=== PATIENT | male | born 1950 | race Caucasian/White ===

== ENCOUNTER 2016-03-18 07:08 | Outpatient (CLI) ==
[2013-07-15 20:58] VITALS: BMI 28.0
[2016-03-18 07:40] LABS: BASOPHILS % (AUTO) 0.7 % (0.0-3.0); EOSINOPHILS # (AUTO) 0.5 K/ul (0.0-0.7); EOSINOPHILS % (AUTO) 8.7 % (0.0-7.0); HEMATOCRIT 42.7 % (42.0-52.0); HEMOGLOBIN 14.3 g/dl (14.0-18.0); IMMATURE GRANULOCYTE % (AUTO) 0.4 % (0.0-5.0); LYMPHOCYTES # (AUTO) 1.6 K/uL (0.60-3.4); LYMPHOCYTES % (AUTO) 28.7 (10.0-50.0); MEAN CORPUSCULAR HEMOGLOBIN 30.8 pg (27.0-31.0); MEAN CORPUSCULAR HGB CONC 33.5 (31.8-35.4); MEAN CORPUSCULAR VOLUME 91.8 fl (80.0-94.0); MONOCYTES # (AUTO) 0.4 K/uL (0.4-2.0); MONOCYTES % (AUTO) 7.3 (0-10); NEUTROPHILS % (AUTO) 54.2; PLATELET COUNT 223 10^3/uL (140-440); RED BLOOD COUNT 4.65 10^6/ul (4.70-6.10); WHITE BLOOD COUNT 5.51 K/ul (4.2-10.2)
[2016-03-18 07:42] LABS: BILIRUBIN,URINE Negative (NEGATIVE); KETONES,URINE Negative (NEGATIVE); LEUKOCYTE ESTERASE ,URINE Negative (NEGATIVE); NITRITE,URINE Negative (NEGATIVE); PROTEIN,URINE Negative (NEGATIVE); URINE, BLOOD Negative (NEGATIVE)
[2016-03-18 07:49] LABS: ADD URINE MICROSCOPIC NO
[2016-03-18 07:55] LABS: ALBUMIN/GLOBULIN RATIO 1.25; ANION GAP 14.7; BILIRUBIN,TOTAL 0.41 mg/dL (0.00-1.20); BUN/CREATININE RATIO 12.5; CALCIUM 9.5 mg/dL (8.2-10.2); CHOL/HDL RATIO 4.2 (4.5-6.4); CREATININE 0.96 mg/dL (0.60-1.10); MAGNESIUM 2.4 mg/dL (1.7-2.2); POTASSIUM 4.7 mmol/L (3.5-5.1); TOTAL PROTEIN 7.2 g/dL (5.8-8.1)
== END 2016-03-18 07:09 | disposition home or self-care (01) ==
LOC: LAB 07:08
PROVIDERS: ATTEND General Practice
DX: E11.9 Type 2 diabetes mellitus without complications (principal); E78.5 Hyperlipidemia, unspecified; I10 Essential (primary) hypertension; R19.7 Diarrhea, unspecified; R25.2 Cramp and spasm; Z79.899 Other long term (current) drug therapy
CPT/HCPCS: 36415; 80053; 80061; 81001; 83036; 83735; 85025

== ENCOUNTER 2016-03-26 11:12 | Outpatient (CLI) ==
[2013-07-15 20:58] VITALS: BMI 28.0
--- NOTE | 2016-03-26 12:43 | DI ---
EXAM: Chest two views HISTORY: Cough COMPARISON: 12/07/2015 TECHNIQUE: Two views of the chest were performed FINDINGS: The lungs are clear. There is no pleural effusion or pneumothorax. The heart is normal in size. The mediastinal contour is normal, noting atherosclerosis. There are no acute abnormaliti es of the bones. IMPRESSION: No acute cardiopulmonary process.
--- NOTE | 2016-03-26 12:46 | DI ---
EXAM:Three-view left ankle COMPARISON: None HISTORY: Trauma and pain FINDINGS: There is no acute fracture or dislocation. Alignment is anatomic. Joint spaces are well preserved. There is a modest degree of degenerative change including calcaneal plantar Achilles spu rs. The ankle mortise is preserved. Soft tissues are unremarkable. No unexpected radio-opaque forei gn bodies. IMPRESSION: 1. No acute osseous abnormality. 2. Modest degenerative change.
== END 2016-03-26 11:13 | disposition home or self-care (01) ==
LOC: RAD 11:12
PROVIDERS: ATTEND General Practice
DX: R05 Cough (principal); M25.572 Pain in left ankle and joints of left foot

== ENCOUNTER → 2016-04-29 | Outpatient (POV) ==
[2013-07-15 20:58] VITALS: BMI 28.0
== END ==
LOC: OUTPT 00:01
PROVIDERS: ATTEND Otolaryngology
DX: H91.90 Unspecified hearing loss, unspecified ear (principal); H93.19 Tinnitus, unspecified ear
CPT/HCPCS: 92557; 92567

== ENCOUNTER 2016-09-30 07:53 | Outpatient (CLI) ==
[2013-07-15 20:58] VITALS: BMI 28.0
[2016-09-30 08:34] LABS: BASOPHILS % (AUTO) 0.7 % (0.0-3.0); EOSINOPHILS # (AUTO) 0.6 K/ul (0.0-0.7); EOSINOPHILS % (AUTO) 9.8 % (0.0-7.0); HEMATOCRIT 39.8 % (42.0-52.0); IMMATURE GRANULOCYTE % (AUTO) 0.5 % (0.0-5.0); LYMPHOCYTES # (AUTO) 1.6 K/uL (0.60-3.4); LYMPHOCYTES % (AUTO) 28.2 (10.0-50.0); MEAN CORPUSCULAR HEMOGLOBIN 31.9 pg (27.0-31.0); MEAN CORPUSCULAR HGB CONC 35.2 (31.8-35.4); MEAN CORPUSCULAR VOLUME 90.7 fl (80.0-94.0); MONOCYTES # (AUTO) 0.4 K/uL (0.4-2.0); MONOCYTES % (AUTO) 7.6 (0-10); NEUTROPHILS % (AUTO) 53.2; PLATELET COUNT 206 10^3/uL (140-440); RED BLOOD COUNT 4.39 10^6/ul (4.70-6.10); WHITE BLOOD COUNT 5.64 K/ul (4.2-10.2)
[2016-09-30 08:37] LABS: BILIRUBIN,URINE Negative (NEGATIVE); KETONES,URINE Negative (NEGATIVE); LEUKOCYTE ESTERASE ,URINE Negative (NEGATIVE); NITRITE,URINE Negative (NEGATIVE); PROTEIN,URINE Negative (NEGATIVE); URINE, BLOOD Negative (NEGATIVE)
[2016-09-30 08:38] LABS: ADD URINE MICROSCOPIC NO
[2016-09-30 08:51] LABS: ALBUMIN 3.9 g/dL (3.4-5.0); ALBUMIN/GLOBULIN RATIO 1.26; ANION GAP 15.6; BILIRUBIN,TOTAL 0.45 mg/dL (0.00-1.20); BUN/CREATININE RATIO 13.68; CALCIUM 10.1 mg/dL (8.2-10.2); CREATININE 0.95 mg/dL (0.60-1.10); POTASSIUM 4.6 mmol/L (3.5-5.1)
== END 2016-09-30 07:54 | disposition home or self-care (01) ==
LOC: LAB 07:53
PROVIDERS: ATTEND General Practice
DX: Z79.899 Other long term (current) drug therapy (principal)
CPT/HCPCS: 36415; 80053; 80061; 81001; 83036; 85025

== ENCOUNTER 2017-02-01 06:52 | Outpatient (CLI) ==
[2013-07-15 20:58] VITALS: BMI 28.0
[2017-02-01 07:09] LABS: HEMATOCRIT 40.5 % (42.0-52.0); HEMOGLOBIN 13.7 g/dl (14.0-18.0); MEAN CORPUSCULAR HEMOGLOBIN 31.2 pg (27.0-31.0); MEAN CORPUSCULAR HGB CONC 33.8 (31.8-35.4); MEAN CORPUSCULAR VOLUME 92.3 fl (80.0-94.0); RED BLOOD COUNT 4.39 10^6/ul (4.70-6.10); WHITE BLOOD COUNT 5.36 K/ul (4.2-10.2)
[2017-02-01 07:29] LABS: BILIRUBIN,URINE Negative (NEGATIVE); KETONES,URINE Negative (NEGATIVE); LEUKOCYTE ESTERASE ,URINE Negative (NEGATIVE); NITRITE,URINE Negative (NEGATIVE); PROTEIN,URINE Negative (NEGATIVE); URINE, BLOOD Negative (NEGATIVE)
[2017-02-01 07:32] LABS: ADD URINE MICROSCOPIC NO; ALBUMIN 3.8 g/dL (3.4-5.0); ALBUMIN/GLOBULIN RATIO 1.15; ANION GAP 13.3; BILIRUBIN,TOTAL 0.34 mg/dL (0.00-1.20); BUN/CREATININE RATIO 15.55; CALCIUM 9.2 mg/dL (8.2-10.2); CHOL/HDL RATIO 4.1 (4.5-6.4); CREATININE 0.9 mg/dL (0.60-1.10); POTASSIUM 4.3 mmol/L (3.5-5.1); TOTAL PROTEIN 7.1 g/dL (5.8-8.1)
== END 2017-02-01 06:53 | disposition home or self-care (01) ==
LOC: LAB 06:52
PROVIDERS: ATTEND General Practice
DX: E11.9 Type 2 diabetes mellitus without complications (principal); I10 Essential (primary) hypertension; E78.5 Hyperlipidemia, unspecified; Z79.899 Other long term (current) drug therapy
CPT/HCPCS: 36415; 80053; 80061; 81001; 83036; 85027

== ENCOUNTER 2017-06-01 06:56 | Outpatient (CLI) | payer OTHER ==
[2013-07-15 20:58] VITALS: BMI 28.0
== END 2017-06-01 06:57 | disposition home or self-care (01) ==
LOC: LAB 06:56
PROVIDERS: ATTEND General Practice
DX: I10 Essential (primary) hypertension (principal); E78.1 Pure hyperglyceridemia; E11.9 Type 2 diabetes mellitus without complications; Z12.5 Encounter for screening for malignant neoplasm of prostate
CPT/HCPCS: 36415; 80053; 80061; 81001; 83036; 85025

== ENCOUNTER 2017-09-22 07:42 | Outpatient (CLI) ==
[2013-07-15 20:58] VITALS: BMI 28.0
== END 2017-09-22 07:43 | disposition home or self-care (01) ==
LOC: LAB 07:42
PROVIDERS: ATTEND General Practice
DX: R23.2 Flushing (principal); R25.2 Cramp and spasm; E11.9 Type 2 diabetes mellitus without complications; E78.5 Hyperlipidemia, unspecified; I10 Essential (primary) hypertension
CPT/HCPCS: 36415; 80053; 80061; 81001; 83036; 84402; 84403; 85025

== ENCOUNTER 2017-09-24 10:57 | Outpatient (CLI) | payer OTHER ==
[2013-07-15 20:58] VITALS: BMI 28.0
== END 2017-09-24 10:58 | disposition home or self-care (01) ==
LOC: LAB 10:57
PROVIDERS: ATTEND General Practice
DX: R23.2 Flushing (principal); R25.2 Cramp and spasm
CPT/HCPCS: 83497

== ENCOUNTER 2018-01-18 06:15 | Outpatient (CLI) | payer OTHER ==
[2013-07-15 20:58] VITALS: BMI 28.0
== END 2018-01-18 06:16 | disposition home or self-care (01) ==
LOC: LAB 06:15
PROVIDERS: ATTEND General Practice
DX: E78.5 Hyperlipidemia, unspecified (principal); E11.9 Type 2 diabetes mellitus without complications; I10 Essential (primary) hypertension; Z79.899 Other long term (current) drug therapy
CPT/HCPCS: 36415; 80053; 80061; 81001; 83036; 85025

== ENCOUNTER 2018-04-20 16:33 | Outpatient (CLI) ==
[2013-07-15 20:58] VITALS: BMI 28.0
--- NOTE | 2018-04-20 17:02 | DI ---
EXAM: Two views of the left shoulder. History: Left shoulder pain. Findings: No acute fracture or dislocation. Moderate narrowing of the left AC joint with osteophyte s. Mild narrowing of the left glenohumeral joint. No abnormal calcifications or radiopaque foreign bodies. Impression: 1. No acute osseous abnormality. 2. Moderate arthritis of the left AC joint and mild arthritis of the left glenohumeral joint
--- NOTE | 2018-04-20 17:02 | DI ---
EXAM: Four views of the right knee. History: Right knee pain. Findings: No acute fracture or dislocation. Moderate to severe narrowing of the medial compartment. Mild to moderate narrowing of the lateral and patellofemoral compartments. There is marginal scler osis and osteophyte formation. Patellar enthesiopathy. Impression: 1. No acute osseous abnormality. 2. Tricompartmental osteoarthritis
--- NOTE | 2018-04-20 17:02 | DI ---
EXAM: Two views of the left clavicle. History: Left shoulder pain. Findings: No acute fracture or dislocation. Moderate narrowing of the left AC joint with osteophyte s. Mild narrowing of the left glenohumeral joint. No abnormal calcifications or radiopaque foreign bodies. Impression: 1. No acute osseous abnormality. 2. Moderate osteoarthritis of the left AC joint and mild osteoarthritis of the left glenohumeral debbie nt
== END 2018-04-20 16:34 | disposition home or self-care (01) ==
LOC: RAD 16:33
PROVIDERS: ATTEND General Practice
DX: M25.561 Pain in right knee (principal); M25.512 Pain in left shoulder

== ENCOUNTER 2018-10-19 06:35 | Outpatient (CLI) ==
[2013-07-15 20:58] VITALS: BMI 28.0
== END 2018-10-19 06:36 | disposition home or self-care (01) ==
LOC: LAB 06:35
PROVIDERS: ATTEND General Practice
DX: E11.65 Type 2 diabetes mellitus with hyperglycemia (principal); E78.5 Hyperlipidemia, unspecified; I10 Essential (primary) hypertension; I73.9 Peripheral vascular disease, unspecified; Z79.899 Other long term (current) drug therapy; Z12.5 Encounter for screening for malignant neoplasm of prostate
CPT/HCPCS: 36415; 80053; 80061; 81001; 83036; 85025